=== PATIENT | female | born 1985 | race Hispanic/Latino ===

== ENCOUNTER 2017-11-22 19:08 | Emergency (ER) | payer BC, OTHER ==
--- NOTE | 2017-11-22 20:40 | OBHP ---
Datetime: 11/22/2017 19:30 IP Adm Impression: , intrauterine ; No Active Labor IP Adm Impression Other: No abdominal trauma Involved IP Admit Plan: Observation/Evaluation; Discharge home Admit Comment, IP Provider: at 27.5wks reports here c/o tripping and falling on an outstretched arms withou abdominal involvement. She denies any current pain but reported a decreased in the babys movement and reports here for ev aluation. care with Dr De. Reports an uncomplicated course except an episode of Varicella in the second trimester which was treated with Valtrex. OBhx: , Varicella zooster in current PMHx: Nil of Note SurgHX: None SHx; No toxic Haabits O: Appears well with no apparent distress BP- 115/74, HR- 84 Chest: CTA B/L Abd: Soft,NT, BS- prent. No tenderness or guarding FHR; 150s,regular with moderate variabilities TOCO: None SVE: No bleeding Assessment: IUP at 27.5weeks NST Reactive S/P Fall, Doing well. Plan: NST for 2 hours Reassess D/C home with Reactive Tracing. Follow up with Dr De in 1 week. Extremities - PN: Normal Abdomen - PN: Normal Back - PN: Normal Lungs - PN: Normal Heart - PN: Normal Neurologic - PN: Normal General - PN: Normal FHR - Baseline A Provider: 150s Gestation - Est Wks by US: 27.5 EGA AdmitDate IP: 27.5 Vital Signs Provider: Reviewed IP Chief Complaint: Trauma/Fall NICHD Variability Prov Fetus A: Moderate 6-25bpm NICHD Accel Fetus A IP Provider: [id number] FHR Category Provider Fetus A: Category I NICHD Decel Fetus A IP Provider: None
[2017-11-23 03:23] VITALS: BP 115/74; PULSE 94; TEMP 97.5
== END 2017-11-22 21:25 | disposition home or self-care (01) ==
LOC: H.EROB2 19:08
DX: O26.93 Pregnancy related conditions, unspecified, third trimester (principal); Z04.3 Encounter for examination and observation following other accident; Z3A.27 27 weeks gestation of pregnancy; W01.0XXA Fall on same level from slipping, tripping and stumbling without subsequent striking against object, initial encounter; Z23 Encounter for immunization